=== PATIENT | male | born 1995 | race Two or more races ===

== ENCOUNTER 2024-05-19 17:32 | Inpatient (IN) | payer OTHER ==
[~2024-05-19] VITALS: Ht 185.4 cm; Wt 74.8 kg
--- NOTE | 2024-05-19 17:42 | NUR ---
SE RECIBE MASCULINO ALERTA Y ORIENTADO X3 CUAL VERBALIZA QUE ADAN FAMILIAR LE DIJO QUE PRESENTO UN PERIODO DE FALTA DE CONOCIMIENTO RACHEL LA TARDE DE HOY. PTE REFEIRE NO RECUERDA NADA DE LO OCURIDO Y QUE SOLO SINTIO MAREO. SE RELIZA ISSAC DE S/V Y SE UBICA EN OBS.
[2024-05-19] MEDS ORDERED: 0.9 % SODIUM CHLORIDE 1,000 ML IV SCH ×2 (18:00→23:30)
[2024-05-19] MEDS ORDERED: LevETIRAcetam 500 MG/5 ML VIAL IV ONE (18:15)
--- NOTE | 2024-05-19 18:55 | NUR ---
LOS ORIENTA A PTE SOBRE TX MEDIOC ORDENADO POR . REALIZA ISSAC DE MUESTRAS DE LAB SCHUYLER ORDEN MEDICA Y BAJO MEDIDAS ASEPTICAS. VENOPUNCION PATENTE BAJANDO IV FLUIDS POR REGULADOR. PTE PENDIENTE A ESTUDIO ORDENADO.
[2024-05-19 19:29] LABS: HEMATOCRIT 42.6 % (39.0-48.0); HEMOGLOBIN 14.6 g/dL (13-16.00); MEAN CELL VOLUME 95.5 fL (80.0-100.00); MEAN CORPUSCULAR HEMOGLOBIN 32.7 pg (27.00-32.0); MEAN CORPUSCULAR HGB CONC 34.3 g/dl (32.0-36.0); PLATELET COUNT 218 K/uL (150-450); RED BLOOD COUNT 4.47 M/uL (4.00-6.00); RED CELL DISTRIBUTION WIDTH 13.9 % (11.5-14.5)
[2024-05-19 19:56] LABS: PH,URINE 5.5 (5.0-8.0); URINE APPEARANCE Clear; URINE BILIRRUBIN Negative (NEGATIVE); URINE BLOOD Moderate; URINE COLOR Yellow; URINE GLUCOSE Negative (NEGATIVE); URINE LEUKOCYTE Negative; URINE NITRATE Negative
[2024-05-19 19:59] LABS: BILIRUBIN TOTAL 2.09 mg/dL (0.3-1.2); CALCIUM 10.1 mg/dL (8.5-10.1); CREATININE SERUM 0.89 mg/dL (0.70-1.30); GLOBULINA 3.6 G/DL (2.4-3.5); POTASSIUM 3.56 mEq/L (3.5-5.1); TOTAL PROTEIN 8.6 gm/dL (6.4-8.2)
[2024-05-19 20:00] LABS: GFR 100.37
[2024-05-19 20:33] LABS: COCAINE NEGATIVE (NEGATIVE); METHADONE NEGATIVE (NEGATIVE); OPIATES NEGATIVE (NEGATIVE); THC ( Cannabinoids) POSITIVE (NEGATIVE)
[2024-05-19 21:00] LABS: URINE PROTEIN 100 (NEGATIVE)
[2024-05-19 21:01] LABS: URINE BACTERIA SOME; URINE EPITHELIAL CELLS 0-4 /HPF; URINE RBC 0-3 /HPF; URINE WBC 0-2 /hpf
[2024-05-19] MEDS ORDERED: ONDANSETRON HCL 2 MG/ML VIAL IV ONE (21:15)
[2024-05-19] MEDS ORDERED: ONDANSETRON HCL 4 MG in 0.9 % SODIUM CHLORIDE 50 ML IV PRN (23:45)
[2024-05-19] MEDS ORDERED: ACETAMINOPHEN 500 MG GEL..CAP PO PRN (23:45)
[2024-05-20 00:49] LABS: INR 1.1; PARTIAL THROMBOPLASTIN TIME 26.9 SECONDS (22.0-34.0); PROTHROMBIN TIME 11.5 SECONDS (9.0-11.5)
[2024-05-20] MEDS ORDERED: FAMOTIDINE/PF 20 MG in 0.9 % SODIUM CHLORIDE 8 ML IV PUSH SCH (09:00)
[2024-05-20] MEDS ORDERED: LevETIRAcetam 500 MG/5 ML VIAL IV SCH (09:00)
== END 2024-05-20 19:42 | disposition home or self-care (01) | DRG 897 ==
LOC: ER 17:32 → MEDI 23:34
PROVIDERS: General Practice; ADMIT Internal Medicine; ATTEND Internal Medicine
PROC: 4A12X4Z Monitoring of Cardiac Electrical Activity, External Approach (ICD-10-PCS; principal; 2024-05-19)
PROC: BW28ZZZ Computerized Tomography (CT Scan) of Head (ICD-10-PCS; 2024-05-19)
PROC: B030ZZZ Magnetic Resonance Imaging (MRI) of Brain (ICD-10-PCS; 2024-05-19)
DX: F10.929 Alcohol use, unspecified with intoxication, unspecified (principal); M62.82 Rhabdomyolysis; F12.90 Cannabis use, unspecified, uncomplicated; R56.9 Unspecified convulsions; Z20.822 Contact with and (suspected) exposure to COVID-19
CPT/HCPCS: 70544